=== PATIENT | female | born 2000 | race Caucasian/White ===

== ENCOUNTER 2024-02-22 12:21 | Inpatient (IN) | payer BC, OTHER ==
[2024-02-22] MEDS: LACTATED RINGERS 1,000 ML IV ONE (12:32)
[2024-02-22] MEDS: CITRIC ACID-SODIUM CITRATE 15 ML CUP PO ONE (12:50)
[2024-02-22] MEDS ORDERED: CARBOPROST TROMETHAMINE 250 MCG/ML 1 ML AMP IM PRN (12:54)
[2024-02-22] MEDS ORDERED: OXYTOCIN 10 UNIT/ML 1 ML VIAL IM PRN (12:54)
[2024-02-22] MEDS ORDERED: miSOPROStoL 200 MCG TAB PO PRN (12:54)
[2024-02-22] MEDS ORDERED: METHYLERGONOVINE 0.2 MG/ML 1 ML AMP IM PRN (12:54)
[2024-02-22] MEDS ORDERED: TRANEXAMIC 1,000 MG/100ML-NACL 1,000 MG in EMPTY BAG 1 BAG IV PRN (12:54)
[2024-02-22] MEDS ORDERED: DEXAMETHASONE SOD PHOSPHATE 4 MG/ML 1 ML VIAL ONE (13:00)
[2024-02-22] MEDS ORDERED: ONDANSETRON 4 MG/2 ML VIAL ONE (13:00)
[2024-02-22] MEDS ORDERED: fentaNYL (PF) 50 MCG/ML 2 ML AMP ONE (13:00)
[2024-02-22] MEDS ORDERED: MORPHINE SULFATE (PF) 0.3 MG/0.3 ML SYR ONE (13:00)
[2024-02-22] MEDS ORDERED: KETOROLAC 15 MG/ML 1 ML VIAL ONE (13:00)
[2024-02-22] MEDS ORDERED: OXYTOCIN 30 UNITS/500 ML NS BAG IV ONE (13:00)
[2024-02-22 13:03] LABS: Basophils % (A) 0 %; Eosinophils # (A) 0.1 k/uL (0-0.7); Eosinophils % (A) 1 %; HCT 38.5 % (34.0-46.0); Lymphocytes # (A) 1.5 k/uL (1.0-4.8); Lymphocytes % (A) 12 %; MCH 31.9 pg (25.0-35.0); MCHC 33.9 g/dL (31.0-37.0); MCV 94.3 fL (80.0-100.0); Mean Platelet Volume 9.3; Monocytes # (A) 0.6 k/uL (0-1.0); Monocytes % (A) 5 %; Neutrophils # (A) 10.2 k/uL (1.3-7.7); Neutrophils % (A) 81 %; Platelet Count 187 k/uL (150-450); RBC 4.08 m/uL (3.80-5.40); RDW 13.3 % (11.5-15.5); WBC 12.6 k/uL (3.8-10.6)
[2024-02-22 13:49] LABS: Amphetamine Screen,Urine Not Detected (NotDetected); Barbiturate Screen,Urine Not Detected (NotDetected); Benzodiazepines Screen,Urine Not Detected (NotDetected); Cocaine Screen,Urine Not Detected (NotDetected); Methadone Screen, Urine Not Detected (NotDetected); Opiate Screen,Urine Not Detected (NotDetected); Oxycodone Screen, Urine Not Detected (NotDetected); Phencyclidine Screen,Urine Not Detected (NotDetected); Tricyclic Antidepressant,Urine Not Detected (NotDetected); Urn Cannabinoid Scrn Detected (NotDetected)
--- NOTE | 2024-02-22 14:07 | P.HPOB ---
History of Present Illness H&P Date: 02/22/24 Chief Complaint: Contractions Ms. Mesa is a 23 year old at 40 weeks and 1 day gestation with EDC of 02/21/2024 by LMP consistent with 8 week US who presents to labor and delivery with complaint of painful, regular uterine contractions. She has felt good movement, denies leakage of fluid, and denies vaginal bleeding. The has been essentially uncomplicated. The fetus is estimated in the 70%ile for weight based on a 36w4d growth US. work-up: blood type O positive, antibody screen negative, rubella immune, VDRL non-reactive, HBsAg negative, HIV negative, HCV Ab negative, gonorrhea negative, chlamydia negative, 1 hour GTT elevated, 3 hour GTT within normal limits, GBS negative. Medications and Allergies Allergies Allergy/AdvReac Type Severity Reaction Status Date / Time No Known Allergies Allergy Verified 02/22/24 12:54 Exam Intake and Output 02/21/24 02/22/24 02/22/24 22:59 06:59 14:59 Other: Weight 110.223 kg Focused physical exam is performed. This is a healthy-appearing in no apparent distress. Breathing is non-labored. Abdomen is gravid and non-tender. 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 Extremities non-tender and non-edematous. heart tones are category II with 2 prolonged 3-minute decelerations to the 70s in a row, minimal variability . Contractions are every 3-5 minutes. Results Result Diagrams: 02/22/24 12:36 Abnormal Lab Results - Last 24 Hours (Table) 02/22/24 02/22/24 Range/Units 12:36 12:36 WBC 12.6 H (3.8-10.6) k/uL Neutrophils # 10.2 H (1.3-7.7) k/uL U Marijuana (THC) Screen Detected H (NotDetected) Assessment and Plan Assessment: 23 year old at 40 weeks and 1 day in latent labor with non-reassuring heart tones Plan: Admit, NPO, initiate protocol. Time with Patient: Less than 30
[2024-02-22] MEDS ORDERED: NALOXONE 0.4 MG/ML 1 ML VIAL IV PRN (14:13)
[2024-02-22] MEDS ORDERED: diphenhydrAMINE 25 MG CAP PO PRN (14:13)
[2024-02-22] MEDS ORDERED: METOCLOPRAMIDE 5 MG/ML 2 ML VIAL IVP PRN (14:13)
[2024-02-22] MEDS ORDERED: SIMETHICONE 80 MG CHEWABLE PO PRN (14:13)
[2024-02-22] MEDS ORDERED: diphenhydrAMINE 50 MG CAP PO PRN (14:13)
[2024-02-22] MEDS ORDERED: diphenhydrAMINE 50 MG/ML 1 ML VIAL IVP PRN ×2 (14:13)
[2024-02-22] MEDS ORDERED: ZOLPIDEM 5 MG TAB PO PRN (14:13)
--- NOTE | 2024-02-22 14:13 | P.OP ---
Date of Procedure: 02/22/24 Preoperative Diagnosis: 1. Term IUP at 40 weeks 2. Category II FHTs remote from delivery Postoperative Diagnosis: 1. Term IUP at 40 weeks 2. Category II FHTs remote from delivery 3. Thick meconium Procedure(s) Performed: Primary Lower Transverse Section Implants: None Anesthesia: spinal Surgeon: Beena Deshpande [employer] Physics Teacher #1: Juan Jaramillo Estimated Blood Loss (ml): 571 IV fluids (ml): 900 Urine output (ml): 200 (clear yellow) Pathology: other (placenta) Condition: stable Disposition: floor Indications for Procedure: This is a 23 year old at 40 weeks and 1 day gestation who presented to triage in latent labor with non-reassuring, Category II heart tones with 2 back to back prolonged decelerations lasting 3 minutes down to the 70s. Because the patient is only dilated to 1 centimeter, a patient-centered huddle was held and the need for an expedited deliver was discussed with the patient. It is our clinical recommendation to proceed with the delivery and after questions were answered to the patient agrees to proceed with the recommended plan. The risks, benefits, and alternatives to section were discussed with the patient including risk of bleeding, infection, damage to surrounding structures including bladder/bowels/ureters, and post-operative VTE. The patient understands these risks and desires to proceed with section. Operative Findings: Viable female in left occiput anterior presentation covered in thick meconium. Weight is 3820 grams or 8 pounds 7 ounces. Apgars are 5/9/9. Normal uterus, bilateral fallopian tubes and ovaries are noted. Description of Procedure: The patient was taken to the operating room where spinal anesthesia was found to be adequate. Two grams Ancef were given for infection prophylaxis. She was prepared and draped in the dorsal supine position with a leftward tilt. A Pfannenstiel skin incision was made with the scalpel. The incision was carried down to the fascia with a bovie. The fascia was incised and extended laterally with Guzman scissors. The superior aspect of the fascia was grasped with Sofia clamps. The underlying rectus muscle was dissected off sharply with Guzman scissors. In a similar fashion, the inferior aspect of the fascia was elevated with Sofia clamps and the rectus muscle and pyramidalis were dissected off. Excellent hemostasis was achieved with the bovie. The rectus muscle was in the midline down to the level of the pubic symphysis. Pre- peritoneal fatty tissue was bluntly dissected to expose the peritoneum. The peritoneum was found to be free of adherent bowel and entered sharply with Guzman scissors. The peritoneal incision was extended superiorly and inferiorly to the bladder reflection with good visualization of the bladder. The bladder blade was inserted and vesicouterine peritoneum was identified. Intraabdominal survey revealed scant, clear peritoneal fluid and the thinned-out lower uterine segment. The bladder blade was repositioned to keep the bladder out of the operative field. The lower uterine segment was incised with a scalpel. The amniotic sac was ruptured with an Allis clamp and clear fluid was noted. The uterine incision was extended bluntly with lateral and upward traction. The fetus was in left occiput anterior position. The head was elevated out of the pelvis with special attention paid to avoid using the uterine incision as a fulcrum. Gentle fundal pressure was applied once the head was brought into the incision. The was delivered with no difficulty. The mouth and nose were suctioned with a bulb. The cord was clamped and cut. The was handed off to the lease examiner. IV oxytocin was initiated to facilitate uterine contracti ons. The placenta was delivered intact with manual massage of uterine fundus. The uterus was then exteriorized and the inside of the uterus was gently wiped with a lap sponge to assure complete removal of placental membranes. The uterine incision was closed with a 0-Polysorb suture in a running locked fashion. A second imbricating layer of 0-Polysorb was placed along the incision. Additional figure of eight sutures are placed along the hysterotomy to achieve hemostasis. The ovaries and tubes were found to be normal. The uterus, tubes, and ovaries were then gently returned to the abdominal cavity. The blood clots and fluid were wiped out of the abdomen and pelvis with moist laparotomy sponges. The pelvis was copiously suction irrigated.The uterine incision was reinspected and excellent hemostasis was noted. The fascial layer was closed with a 0-Vicryl suture. The subcutaneous tissue was reapproximated with 2-0 Plain Gut. The skin was closed with 4-0 Monocryl in a subcuticular fashion. The patient tolerated the procedure well. All the counts were correct times two. The patient was taken to the recovery room in a stable condition.
[2024-02-22] MEDS: NALBUPHINE 10 MG/ML (10 ML MDV) IM STA (14:37)
[2024-02-22] MEDS: LACTATED RINGERS 1,000 ML IV SCH (16:41)
[2024-02-22] MEDS: ACETAMINOPHEN TAB 500 MG TAB PO SCH (18:27)
[2024-02-22] MEDS: KETOROLAC 15 MG/ML 1 ML VIAL IVP SCH (20:12)
[2024-02-22] MEDS: ONDANSETRON 4 MG/2 ML VIAL IVP PRN (20:13)
[2024-02-22] MEDS: SENNOSIDES-DOCUSATE SODIUM 1 EACH TAB PO SCH (20:13)
[2024-02-22] MEDS: IBUPROFEN 600 MG TAB PO SCH (23:08)
[2024-02-23 08:25] LABS: Basophils % (A) 0 %; Eosinophils # (A) 0.1 k/uL (0-0.7); Eosinophils % (A) 1 %; HCT 30.8 % (34.0-46.0); HGB 10.1 gm/dL (11.4-16.0); Lymphocytes # (A) 1.9 k/uL (1.0-4.8); Lymphocytes % (A) 12 %; MCH 31.3 pg (25.0-35.0); MCHC 32.7 g/dL (31.0-37.0); MCV 95.8 fL (80.0-100.0); Mean Platelet Volume 9.7; Monocytes # (A) 0.8 k/uL (0-1.0); Monocytes % (A) 5 %; Neutrophils # (A) 12.1 k/uL (1.3-7.7); Neutrophils % (A) 81 %; Platelet Count 141 k/uL (150-450); RBC 3.22 m/uL (3.80-5.40); RDW 13.9 % (11.5-15.5)
--- NOTE | 2024-02-23 09:08 | P.PNOBGPC ---
Subjective - Subjective Principal diagnosis: s/p primary section Interval history: The patient is doing well this morning and had no acute events overnight. She has no complaints this morning. She reports minimal lochia, voiding without difficulty, ambulating, and eating/drinking without nausea or vomiting. She is not yet passing flatus. She is her without difficulty. She denies chest pain, shortness of breathing, fevers, or chills overnight. She denies pain or swelling in the legs. Patient reports: Reports appetite normal, Reports voiding normally, Reports pain well controlled, Reports ambulating normally : doing well Objective - Vital Signs Latest vital signs: Vital Signs Temp Pulse Resp BP Pulse Ox 02/23/24 03:27 97.7 F 72 16 146/86 98 02/23/24 00:00 97.8 F 64 16 122/74 98 02/22/24 20:00 97.1 F L 72 16 142/90 98 02/22/24 16:00 96.3 F L 50 L 16 127/79 99 02/22/24 15:45 51 L 15 123/78 99 02/22/24 15:30 54 L 15 125/78 98 02/22/24 15:15 52 L 15 125/89 99 02/22/24 15:00 67 15 120/81 100 02/22/24 14:45 47 L 15 126/75 96 02/22/24 14:30 52 L 15 123/75 95 02/22/24 14:15 64 15 160/91 100 02/22/24 14:00 96.3 F L 61 15 145/89 100 02/22/24 12:53 94.8 F L 68 18 128/82 99 Intake and Output 02/22/24 02/23/24 02/23/24 22:59 06:59 14:59 Output Total 118 300 Balance -118 -300 Output: Urine 300 Output, Quantitative 118 Blood Loss Other: Voiding Method Indwelling Catheter # Voids 1 - Exam Extremities: Present: normal Abdomen: Present: normal appearance, soft Incision: Present: normal, dry, intact Uterus: Present: normal, firm - Labs Labs: Abnormal Lab Results - Last 24 Hours (Table) 02/22/24 02/22/24 02/23/24 Range/Units 12:36 12:36 06:56 WBC 12.6 H 15.0 H (3.8-10.6) k/uL RBC 3.22 L (3.80-5.40) m/uL Hgb 10.1 L (11.4-16.0) gm/dL Hct 30.8 L (34.0-46.0) % Plt Count 141 L (150-450) k/uL Neutrophils # 10.2 H 12.1 H (1.3-7.7) k/uL U Marijuana (THC) Screen Detected H (NotDetected) Assessment and Plan Assessment: 24 year old now POD#1 s/p primary section for non-reassuring heart tones Plan: 1. Postoperative. Patient doing well, meeting all postoperative milestones. 2. Acute blood loss anemia. 13.0 > 10.1 post-op. Patient asymptomatic, VSS. Ferrous sulfate qDay. 3. Elevated BP x2 . Continue to monitor. 4. Viable female . At bedside, doing well, . Dispo: Continue to monitor. Anticipate discharge home tomorrow on POD#2.
[2024-02-23] MEDS: FERROUS SULFATE 325 MG TAB PO SCH (12:24)
--- NOTE | 2024-02-23 19:23 | P.PN ---
Progress Note - Text 02/23/24 714am 24-year-old female status post with spinal Duramorph patient seen and evaluated for postop pain control, patient has a VAS of 1 with no complaints of nausea mild pruritus which should subside
--- NOTE | 2024-02-24 08:13 | P.PNOBGPC ---
Subjective - Subjective Principal diagnosis: Postop day 2 Interval history: Feeling sore but pain mostly well-controlled. Patient reports: Reports appetite normal, Reports voiding normally, Reports ambulating normally [place]: other ([place] [facility]) Objective - Vital Signs Latest vital signs: Vital Signs Temp Pulse Resp BP Pulse Ox 02/24/24 07:48 97.8 F 71 17 139/88 02/24/24 00:00 98.1 F 74 16 126/83 98 02/23/24 16:00 98.3 F 86 18 126/72 97 Intake and Output 02/23/24 02/24/24 02/24/24 22:59 06:59 14:59 Other: # Voids 2 2 - Exam Extremities: Present: normal, edema Abdomen: Present: normal appearance, soft, tenderness. Absent: distention Incision: Present: normal, dry, intact. Absent: erythematous Uterus: Present: normal, firm. Absent: tenderness - Labs Labs: Abnormal Lab Results - Last 24 Hours (Table) 02/23/24 Range/Units 06:56 WBC 15.0 H (3.8-10.6) k/uL RBC 3.22 L (3.80-5.40) m/uL Hgb 10.1 L (11.4-16.0) gm/dL Hct 30.8 L (34.0-46.0) % Plt Count 141 L (150-450) k/uL Neutrophils # 12.1 H (1.3-7.7) k/uL Assessment and Plan (1) 40 weeks gestation of Current Visit: Yes Status: Acute Code(s): Z3A.40 - 40 WEEKS GESTATION OF SNOMED Code(s): 12863883 (2) Acute blood loss anemia (ABLA) Current Visit: Yes Status: Acute Code(s): D62 - ACUTE POSTHEMORRHAGIC ANEMIA SNOMED Code(s): 460717611 (3) Non-reassuring status, delivered, current hospitalization Current Visit: Yes Status: Acute Code(s): O75.89 - OTHER SPECIFIED COMPLICATIONS OF LABOR AND DELIVERY SNOMED Code(s): 959614831 (4) S/P primary low transverse Current Visit: Yes Status: Acute Code(s): Z98.891 - HISTORY OF UTERINE SCAR FROM PREVIOUS SURGERY SNOMED Code(s): 476998154 (5) Thick meconium stained amniotic fluid Current Visit: Yes Status: Acute Code(s): P96.83 - MECONIUM STAINING SNOMED Code(s): 275544395 Plan: Postop day 2 status post primary low transverse section secondary to category 2 heart tones. Infant is in the nursery. She is recovering well. Routine care.
--- NOTE | 2024-02-25 08:21 | P.PNOBGPC ---
Subjective - Subjective Patient reports: Reports appetite normal, Reports voiding normally, Reports pain well controlled, Reports ambulating normally : doing well, in NICU (Remains on prophylactic antibiotics.) Objective - Vital Signs Latest vital signs: Vital Signs Temp Pulse Pulse Resp BP BP Pulse Ox 02/25/24 00:00 98.0 F 80 18 119/80 97 02/24/24 15:30 97.6 F 86 17 134/82 99 02/24/24 13:05 131/86 02/24/24 12:36 97.9 F 85 16 137/92 98 Intake and Output 02/24/24 02/25/24 02/25/24 22:59 06:59 14:59 Other: # Voids 2 - Exam Extremities: Present: normal Abdomen: Present: normal appearance, soft. Absent: distention, tenderness Incision: Present: normal, dry, intact Uterus: Present: normal, firm Assessment and Plan (1) S/P primary low transverse Current Visit: Yes Status: Acute Code(s): Z98.891 - HISTORY OF UTERINE SCAR FROM PREVIOUS SURGERY SNOMED Code(s): 541426650 Plan: Continue routine and postoperative care. I would anticipate discharge home tomorrow on postoperative day #4 regardless of status. I have continued to encourage her to ambulate in the hallways routinely.
--- NOTE | 2024-02-26 08:31 | P.DS ---
Providers Date of admission: 02/22/24 12:45 Expected date of discharge: 02/26/24 Attending physician: Juan Jaramillo Primary care physician: Stated None - Discharge Diagnosis(es) (1) S/P primary low transverse Current Visit: Yes Status: Acute Hospital Course: The patient is a 23-year-old 1 para 0 admitted at 40-1/7 by good dating parameters. She is admitted in early labor and was found to have nonreassuring heart rate tracing, category 2 with repetitive and deep late decelerations. As she was remote from delivery, the decision was made to proceed with primary low-transverse section. She was taken to the operating room where she was delivered of a viable 8 pound 7 ounce baby girl with Apgars of 5 at 1 minute, 9 at 5 minutes, and 9 at 10 minutes. The patient's postoperative course was unremarkable with vital signs remaining stable and her temperature was afebrile throughout. She remained in the hospital as the infant was confined to the special care nursery for antibiotic prophylaxis and oxygen supplementation. She was deemed stable for discharge on postoperative and day #4 and was discharged home to follow-up in the office in 2 weeks for an incision check in 6 weeks routinely. Discharge instructions included calling for any significantly increased bleeding or foul- smelling lochia, significantly increased fever or abdominal pain, perineal complaints, breast complaints, incisional complaints, or anything else that concerned her. She was additionally instructed to do no heavy lifting over the next 6 weeks and to abstain from intercourse over the same 6 weeks period of time. She was lastly instructed to do no driving until off of all pain medications or 2 weeks time, whichever came first. She understood her instructions and agrees to follow-up as noted above. Discharge medications included continued vitamins as she has opted to breast-feed. She was otherwise to use [id number] analgesic pain medications. Maternal blood type is O+ and rubella status is immune. Discharge hemoglobin and hematocrit were 10.1 and 30.8 respectively. Procedures: #1. Primary low-transverse section Patient Condition at Discharge: Stable Plan - Discharge Summary New Discharge Prescriptions: New Ibuprofen [Motrin] 600 mg PO Q6HR PRN #30 tab PRN Reason: Mild Pain (Scale 1 To 3) oxyCODONE HCL [Roxicodone] 5 mg PO Q6HR PRN 3 Days #12 tab PRN Reason: Breakthrough Pain Acetaminophen Tab [Tylenol] 650 mg PO Q6H PRN #30 tab PRN Reason: Mild Pain (Scale 1 To 3) Discharge Medication List Acetaminophen Tab [Tylenol] 650 mg PO Q6H PRN #30 tab 02/23/24 [Rx] Ibuprofen [Motrin] 600 mg PO Q6HR PRN #30 tab 02/23/24 [Rx] oxyCODONE HCL [Roxicodone] 5 mg PO Q6HR PRN 3 Days #12 tab 02/23/24 [Rx] Follow up Appointment(s)/Referral(s): Juan Jaramillo MD [STAFF PHYSICIAN] - 2 Weeks Activity/Diet/Wound Care/Special Instructions: Instructions 1. Do not begin any exercise program for 3 weeks. 2. Do not resume sexual relations for 6 weeks or longer if uncomfortable. 3. You may take tub baths or showers at any time. 4. You may use tampons if desired after 6 weeks. 5. Keep any areas repaired with stitches clean and dry. 6. If you are not nursing, wear a good fitting, supportive bra during the day and limit fluid intake for at least 1 week to prevent breast engorgement. 7. Call the office, , within the next week to make appointment for your 6 week checkup if it has not already been made. 8. Report any of the following occurrences to the doctor promptly: a. Heavy, excessive bleeding b. Chills, fever c. Burning or frequency of urination d. Pain or redness and breasts if nursing e. Increasing pain or swelling of vulva (stitches). In addition to the above instructions, the following additional should be followed: 1. No heavy lifting or straining (exercising) until after 6 week checkup. 2. Keep abdominal incision clean and dry: You may wear a dressing if more comfortable. 3. Make office appointment for 2 weeks after delivery date. Discharge Disposition: HOME SELF-CARE
[2024-02-26 16:28] VITALS: BP 138/87; PULSE 92; RESP 16; TEMP 97.9
== END 2024-02-26 18:51 | disposition home or self-care (01) | DRG 787 ==
LOC: FBPOP 12:21 → 4FBP 12:45
PROVIDERS: ADMIT Obstetrics & Gynecology; ATTEND Obstetrics & Gynecology
PROC: 10D00Z1 Extraction of Products of Conception, Low, Open Approach (ICD-10-PCS; principal; 2024-02-22 13:18)
DX: O48.0 Post-term pregnancy (principal); D62 Acute posthemorrhagic anemia; O77.0 Labor and delivery complicated by meconium in amniotic fluid; O76 Abnormality in fetal heart rate and rhythm complicating labor and delivery; O99.02 Anemia complicating childbirth; O99.73 Diseases of the skin and subcutaneous tissue complicating the puerperium; L29.9 Pruritus, unspecified; Z28.310 Unvaccinated for COVID-19; Z3A.40 40 weeks gestation of pregnancy; Z37.0 Single live birth
CPT/HCPCS: 80306; 85025; 86850; 86900; 86901; 88307